=== PATIENT | male | born 1965 | race Caucasian/White ===

== ENCOUNTER 2016-10-20 05:42 | Outpatient (CLI) | payer BC ==
[~2016-10-20] VITALS: Ht 188 cm; Wt 102.1 kg
[~2016-10-20 05:42] MED LIST: DICL18CA; LEVO25TA5; LISI1TAB6; TAMS0.4C2; TEST60GE2; TRAM1TAB7; ZOLP5TAB7; [UNRECOGNIZED DRUG - CODE]
== END 2016-10-20 11:12 ==
LOC: PREOP 05:42
PROVIDERS: ATTEND Surgery Pediatric Surgery
DX: Z01.818 Encounter for other preprocedural examination (principal); Z12.11 Encounter for screening for malignant neoplasm of colon

== ENCOUNTER 2016-10-22 11:16 | Day surgery (SDC) | payer BC ==
[~2016-10-22] VITALS: Ht 188 cm; Wt 102.1 kg
[~2016-10-22 11:16] MED LIST changes: +NS IV 500 ML 500 ML ONE
[2016-10-22 11:25] VITALS: BP 138/82
[2016-10-22] MEDS ORDERED: FLUMAZENIL (ROMAZICON) 0.1 MG/ML 5 ML VIAL INJ PRN (11:30)
[2016-10-22] MEDS ORDERED: LIDOCAINE JELLY 2% (XYLOCAINE) 5 ML TUBE MM PRN (11:30)
[2016-10-22] MEDS ORDERED: NS IV 500 ML 500 ML IV PRN (11:30)
[2016-10-22] MEDS ORDERED: NALOXONE 0.4 MG/ML 1 ML (NARCAN) VIAL IVP PRN (11:30)
[2016-10-22] MEDS ORDERED: FEXO180T84 PO (11:44)
[2016-10-22] MEDS: fentaNYL INJECTION 100 MCG/2 ML AMP IVP PRN ×4 (11:53→12:20)
[2016-10-22] MEDS ORDERED: TRAM1TAB7 PO (11:54)
[2016-10-22] MEDS ORDERED: LISI1TAB6 PO (11:54)
[2016-10-22] MEDS ORDERED: ETAN50PE SQ (11:54)
[2016-10-22] MEDS ORDERED: ZOLP5TAB7 PO (11:54)
[2016-10-22] MEDS ORDERED: TAMS0.4C2 PO (11:54)
[2016-10-22] MEDS ORDERED: BUDE10.22 IH (11:54)
[2016-10-22] MEDS ORDERED: LEVO25TA5 PO (11:54)
[2016-10-22] MEDS ORDERED: TEST2.5G6 TD (11:54)
[2016-10-22] MEDS ORDERED: DICL35CA PO (11:54)
[2016-10-22] MEDS ORDERED: PSEU30TA35 PO (11:54)
[2016-10-22] MEDS: MIDAZOLAM 2 MG/2 ML (VERSED) VIAL IVP PRN ×5 (11:55→12:28)
--- NOTE | 2016-10-22 11:57 | Conscious Sedation/ASA ---
Conscious Sedation Pre-Proced Time Reviewed: 11:50 ASA Class: 2 Airway Mallampati Classification: (jackson appropriate class) I. II. III, IV Lungs Heart ASA score ASA 1: a normal healthy patient ASA 2: a patient with a mild systemic disease (mid diabetes, controlled hypertension, obesity ASA 3: a patient with a severe systemic disease that limits activity (angina , COPD, prior Myocardial infarction) ASA 4: a patient with an incapacitating disease that is a constant threat to life (CHF, renal failure) ASA 5: a moribund patient not expected to survive 24 hrs. (ruptured aneurysm) ASA 6: a declared brain patient whose organs are being harvested. For emergent operations, add the letter E after the classification Grade 2 Sedation Plan: Analgesia, Amnesia, Plan communicated to team members, Discussed options with patient/fam, Discussed risks with patient/fam Note The patient is an appropriate candidate to undergo the planned procedure, sedation, and anesthesia. The patient immediately re-assessed prior to indication. SHAY HORNER MD Oct 22, 2016 11:57 am
--- NOTE | 2016-10-22 11:58 | Progress Note-Pre Operative ---
Pre-Operative Progress Note H&P Reviewed The H&P was reviewed, patient examined and no changes noted. Date H&P Reviewed: Oct 22, 2016 Time H&P Reviewed: 11:50 Pre-Operative Diagnosis: screening colonoscopy SHAY HORNER MD Oct 22, 2016 11:58 am
[2016-10-22] MEDS ORDERED: ONDANSETRON 4 MG/2 ML (SDV) Z0FRAN IV PRN (12:00)
[2016-10-22] MEDS ORDERED: morphine INJ 10 MG/ML 1ML (SYR OR VIAL) IV PRN (12:00)
[2016-10-22] MEDS ORDERED: HYDROcodone/APAP 5 MG/325 MG (LORTAB) TAB PO PRN (12:00)
[2016-10-22] MEDS ORDERED: ACETAMINOPHEN 325 MG TABLET/CAPLET (TYLENOL) PO PRN (12:00)
--- NOTE | 2016-10-22 12:36 | Progress Note-Post Operative ---
Post-Operative Progess Note Pre-Operative Diagnosis screening colonoscopy Post-Operative Diagnosis chronic stage 2 ext and int hemorrhoids, moderate sigmoid diverticulosis. Post-Op Procedure Note Date of Procedure: Oct 22, 2016 Name of Procedure: Colonoscopy Anesthesia Type CS Estimated blood loss (mL): SHAY Richardson MD Oct 22, 2016 12:36 pm
--- NOTE | 2016-10-22 12:38 | Discharge Inst-Surgical ---
D/C Lap Instructions-EVENS Follow Up 10 years Activity as tolerated High Fiber Diet 25g or more per day Avoid Alcohol, Caffeine, Spicy [place] and Acid foods. Drink 64 fluid oz or more of fluids per day. Symptoms to Report: Fever over 101 degree F, Nausea/Vomiting If any problems/questions: Contact your physician or go to Emergency Room SHAY HORNER MD Oct 22, 2016 12:38 pm
[2016-10-22 12:55] VITALS: BP 121/81
[2016-10-22 13:15] VITALS: BP 113/79
[2016-10-22 13:22] VITALS: BP 113/79
--- NOTE | 2016-10-25 07:10 | PROCEDURE REPORT ---
PROCEDURE PHYSICIAN: SHAY MONZON DATE OF PROCEDURE: 10/22/2016 ATTENDING PRIMARY CARE PHYSICIAN: Dr. Sosa. PREOPERATIVE DIAGNOSIS: Screening colonoscopy. POSTOPERATIVE DIAGNOSES: 1. Chronic, stage II external and internal hemorrhoids. 2. Moderate sigmoid diverticulosis. PROCEDURE: Colonoscopy. SURGEON: Dr. Monzon. ANESTHESIA: Conscious sedation. ESTIMATED BLOOD LOSS: Minimal. FINDINGS: 1. Chronic, stage II external and internal hemorrhoids, not actively edematous nor inflamed and no bleeding. 2. Prostate gland was palpable and appeared normal. 3. There was a moderate sigmoid diverticulosis with no signs of inflammation. 4. The remainder of the colon was normal. There were no polyps identified. DISPOSITION: The patient tolerated the procedure well. BRIEF HISTORY: Mr. Philippe Carbajal is a 51-year-old male in need of a screening colonoscopy. This gentleman has not had a colonoscopy up to this point in his life. He states that for the most part, he is doing well. He does not report any major issues with diarrhea nor constipation, as well as no red blood per rectum nor any dark tarry stools. He also does not report any family history of colon cancer. The patient was brought to the endoscopy suite, laid in the left lateral decubitus position. After adequate IV pain and sedative medications and conscious sedation anesthesia, a digital rectal examination was performed. Chronic, stage II external and internal hemorrhoids were identified which were not actively edematous nor inflamed and no bleeding. Normal sphincter tone was felt and there were no palpable masses. The prostate gland was palpable and appeared normal. The endoscope was then intubated into the anus and rectum gently insufflated. The endoscope was then advanced through the valves of Chaves of the rectum with no polyps or any neoplasms identified. We then proceeded through the sigmoid colon where a moderate sigmoid diverticulosis was identified. There were no mucosal inflammatory changes to indicate any active diverticulitis. The endoscope was then advanced through the remainder of the descending, transverse, and ascending colon to the cecum. These segments appeared normal. There were no polyps or any neoplasms identified throughout the colon or rectum. The endoscope was then slowly withdrawn while taking a second look and suctioning of residual air with no additional findings. The patient tolerated the procedure well. We will recommend medical management with a high fiber diet with least 30 grams of fiber per day, as well as at least 64 fluid ounces of water daily to promote soft stools on a daily basis. He does not need another colonoscopy for another 10 years; however, sooner if any problems arise. Job ID: [id number] Dictated Date: 10/22/2016 12:37:33 Lock Tender Chief Operator Date: 10/25/2016 07:05:30 / suze
== END 2016-10-22 13:29 | disposition home or self-care (01) ==
LOC: SDC 11:16
PROVIDERS: ATTEND Surgery Pediatric Surgery
DX: Z12.11 Encounter for screening for malignant neoplasm of colon (principal); K57.30 Diverticulosis of large intestine without perforation or abscess without bleeding; K64.1 Second degree hemorrhoids

== ENCOUNTER 2021-09-27 14:04 | Emergency (ER) | payer BC ==
[~2021-09-27] VITALS: Ht 190.5 cm; Wt 102.0 kg
[~2021-09-27 14:04] MED LIST changes: +BUDE10.22 IH; +DICL35CA PO; +ETAN50PE SQ; +FEXO180T84 PO; +LEVO25TA5 PO; +LISI1TAB44; +LISI1TAB44 PO; -LISI1TAB6; -NS IV 500 ML 500 ML ONE; +PS30T PO; +TAMS0.4C2 PO; +TEST2.5G10 TD; +TRAM1TAB7 PO; +ZOLP5TAB7 PO
--- NOTE | 2021-09-27 14:48 | ED Integumentary General ---
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 HAS 2 AREA OF CONCERN ON BUTTOCKS AND AREA ON R 3RD FINGER CALLED DR DELGADO SIERRA AND STARTED HIM ON CLINDYMYCIN REPORTS NOT HELPING CONCERN BECAUSE HE HAS HAD MRSA IN PAST. FINGER SWOLLEN. Source: patient Exam Limitations: no limitations (YANNA ALBERT STUDENT) History of Present Illness Date Seen by Provider: Sep 27, 2021 Time Seen by Provider: 14:35 Initial Comments This is a 56 YO male presenting to the ED with right middle finger and right buttock pain, redness, and swelling for the past week. Pt states he has had MRSA in the past and this is similar to those episodes. Pt sees Dr. Hernandez for his psoriatic arthritis and is treated with Enbrel, which he says can precipitate his MRSA flare-ups. He called Dr. Hernandez's office on September 24 regarding his symptoms and Clindamycin 300 mg TID was called into his pharmacy. Pt states that despite taking the Clindamycin, his symptoms have continued to worsen. Has an appointment with his PCP Dr. Sosa scheduled for this Tuesday. Timing/Duration: week Associated Symptoms: No fever (YANNA ALBERT STUDENT) Allergies and Home Medications Allergies Coded Allergies: sulfamethoxazole (Verified Allergy, Intermediate, RASH, 11/15/15) Rash consisting of ecchymosis or petechiae trimethoprim (Verified Allergy, Intermediate, RASH, 11/15/15) Rash consisting of ecchymosis or petechiae codeine (Verified Adverse Reaction, Mild, 11/15/15) Palpitations Patient Home Medication List Home Medication List Reviewed: Yes (PETEY CUNNINGHAM MD) Budesonide/Formoterol Fumarate (Symbicort 80-4.5 Mcg Inhaler) 10.2 Gm Hfa.aer.ad, 2 PUFF IH BID PRN for PRN, (Reported) Entered as Reported by: ORIN BELTRE on 10/22/16 1154 Clindamycin HCl (Clindamycin HCl) 150 Mg Capsule, 150 MG PO TID Prescribed by: PETEY CUNNINGHAM on 09/27/21 1644 Diclofenac Submicronized (Zorvolex) 35 Mg Capsule, 35 MG PO BID, (Reported) Entered as Reported by: ORIN BELTRE on 10/22/16 115 Doxycycline Hyclate (Doxycycline Hyclate) 100 Mg Tablet, 100 MG PO BID Prescribed by: PETEY CUNNINGHAM on 09/27/21 164 Etanercept (Enbrel) 50 Mg/1 Ml Pen.injctr, 50 MG SQ PRN, (Reported) Entered as Reported by: ORIN BELTRE on 10/22/16 115 Fexofenadine HCl (Rachel Allergy) 180 Mg Tablet, 180 MG PO DAILY, (Reported) Entered as Reported by: ORIN BELTRE on 10/22/16 114 Hydrocodone/Acetaminophen (Hydrocodone-Acetamin 7.5-325) 1 Each Tablet, 1 EACH PO Q6H Prescribed by: PETEY CUNNINGHAM on 09/27/21 164 Levothyroxine Sodium (Levothyroxine Sodium) 25 Mcg Tablet, 25 MCG PO DAILY, (Reported) Entered as Reported by: ORIN BELTRE on 10/22/16 115 Lisinopril/Hydrochlorothiazide (Lisinopril-Hctz 10-12.5 mg Tab) Unknown Strength Tablet, 1 EACH PO DAILY, (Reported) Entered as Reported by: ORIN BELTRE on 10/22/16 115 Pseudoephedrine HCl (Sudogest) 30 Mg Tablet, 30 MG PO PRN, (Reported) Entered as Reported by: ORIN BELTRE on 10/22/16 115 Tamsulosin HCl (Tamsulosin HCl) 0.4 Mg Cap.er.24h, 0.4 MG PO DAILY, (Reported) Entered as Reported by: ORIN BELTRE on 10/22/16 115 Testosterone (Testosterone) 2.5 Gm Gel.packet, 0.15 GM TD DAILY, (Reported) Entered as Reported by: ORIN BELTRE on 10/22/16 115 Tramadol HCl/Acetaminophen (Tramadol-Acetaminophn 37.5-325) 1 Each Tablet, 1 EACH PO PRN, (Reported) Entered as Reported by: ORIN BELTRE on 10/22/16 115 Zolpidem Tartrate (Zolpidem Tartrate) 5 Mg Tablet, 5 MG PO PRN, (Reported) Entered as Reported by: ORIN BELTRE on 10/22/16 115 Review of Systems Review of Systems Constitutional: No chills, No fever EENTM: No blurred vision, No double vision Respiratory: No cough, No dyspnea on exertion Cardiovascular: No chest pain, No edema Gastrointestinal: No abdominal pain, No constipation Genitourinary: no symptoms reported Musculoskeletal: back pain (chronic); No muscle pain Skin: see HPI Psychiatric/Neurological: Denies Headache, Denies Numbness Endocrine: No Symptoms Reported Hematologic/Lymphatic: No Symptoms Reported (YANNA ALBERT STUDENT) All Other Systems Reviewed Negative Unless Noted: Yes (Negative excepted noted.) (YANNA ALBERT STUDENT) Past Ilqptja-Edljew-Kktmfc Hx Immunizations Up To Date First/Initial COVID19 Vaccinat: December COVID19 Vaccination Jack: DECEMBER COVID19 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: [employer] (YANNA ALBERT) Seasonal Allergies Seasonal Allergies: Yes (YANNA ALBERT) Past Medical History Testicular Asthma Hypertension Reproductive Disorders: No Sexually Transmitted Disease: No Rheumatoid Arthritis Hypothyroidsim Sleep Difficulties Adverse Reaction/Blood Tranf: No (YANNA ALBERT) Physical Exam Vital Signs Vital Signs - First Documented 09/27/21 14:28 Temp 36.6 Pulse 94 Resp 18 B/P (MAP) 145/95 (112) Pulse Ox 95 O2 Delivery Room Air (PETEY CUNNINGHAM MD) Vital Signs Capillary Refill : Less Than 3 Seconds (YANNA ALBERT STUDENT) General Appearance: WD/WN, no apparent distress HEENT: PERRL/EOMI; No scleral icterus (R), No scleral icterus (L) Neck: supple, normal inspection Cardiovascular: regular rate, rhythm, no edema, no murmur Respiratory: lungs clear, normal breath sounds, no respiratory distress, no accessory muscle use Gastrointestinal: non tender, soft; No distended, No guarding Back: No decreased range of motion Extremities: normal range of motion, non-tender, other (Blanchable erythema and swelling of the right middle finger starting at the tip and extending to just proximal to the PIP joint. No abscesses, wounds, or ulcerations. No volar tenderness or sausage-shaped finger, but does have pain with extension of the finger. Blanchable area of erythema and induration with purulent drainage on the right buttock near the gluteal cleft.) Neurologic/Psychiatric: no motor/sensory deficits, alert, normal mood/affect, oriented x 3 Skin: normal color, warm/dry (YANNA ALBERT MED STUDENT) Skin Problem Location: other (area of abcess right buttock at the gluteal cleft to the right. rather large with erythema surrounding and 5-6cm of induration. some overlying necrotic skin with a suggestion of purulent drainage throught the skin. Very tender to palpation. scant skin changes "kissing lesion" on opposite buttock. erythema does not extend to the rectum.) Skin Problem Character: abscess (PETEY CUNNINGHAM MD) Progress/Results/Core Measures Results/Orders Lab Results Laboratory Tests Test 09/27/21 15:30 Range/Units White Blood Count 11.3 H 4.3-11.0 10^3/uL Red Blood Count 4.43 4.30-5.52 10^6/uL Hemoglobin 14.3 13.3-17.7 g/dL Hematocrit 40 40-54 % Mean Corpuscular Volume 91 80-99 fL Mean Corpuscular Hemoglobin 32 25-34 pg Mean Corpuscular Hemoglobin Concent 36 32-36 g/dL Red Cell Distribution Width 11.5 10.0-14.5 % Platelet Count 307 130-400 10^3/uL Mean Platelet Volume 9.3 9.0-12.2 fL Immature Granulocyte % (Auto) 2 % Neutrophils (%) (Auto) 80 H 42-75 % Lymphocytes (%) (Auto) 10 L 12-44 % Monocytes (%) (Auto) 7 0-12 % Eosinophils (%) (Auto) 1 0-10 % Basophils (%) (Auto) 0 0-10 % Neutrophils # (Auto) 9.0 H 1.8-7.8 10^3/uL Lymphocytes # (Auto) 1.1 1.0-4.0 10^3/uL Monocytes # (Auto) 0.8 0.0-1.0 10^3/uL Eosinophils # (Auto) 0.2 0.0-0.3 10^3/uL Basophils # (Auto) 0.0 0.0-0.1 10^3/uL Immature Granulocyte # (Auto) 0.2 H 0.0-0.1 10^3/uL Sodium Level 136 135-145 MMOL/L Potassium Level 4.0 3.6-5.0 MMOL/L Chloride Level 102 98-107 MMOL/L Carbon Dioxide Level 23 21-32 MMOL/L Anion Gap 11 5-14 MMOL/L Blood Urea Nitrogen 11 7-18 MG/DL Creatinine 0.77 0.60-1.30 MG/DL Estimat Glomerular Filtration Rate 105 BUN/Creatinine Ratio 14 Glucose Level 93 70-105 MG/DL Calcium Level 9.3 8.5-10.1 MG/DL (PETEY CUNNINGHAM MD) Micro Results Microbiology 09/27/21 Gram Stain - Final, Resulted 09/27/21 Wound Culture - Preliminary, Resulted Staphylococcus aureus (PETEY CUNNINGHAM MD) My Orders Orders - PETEY CUNNINGHAM MD Ed Iv/Invasive Line Start (09/27/21 15:07) Cbc With Automated Diff (09/27/21 15:07) Basic Metabolic Panel (09/27/21 15:07) Wound Culture (09/27/21 15:07) Hydrocodone/Apap 10/325 Tablet (Lortab 1 (09/27/21 15:15) Lidocaine 1% Inj 20 Ml (Xylocaine 1% Inj (09/27/21 15:15) (PETEY CUNNINGHAM MD) Medications Given in ED (PETEY CUNNINGHAM MD) Vital Signs/I&O 09/27/21 09/27/21 14:28 17:06 Temp 36.6 36.6 Pulse 94 94 Resp 18 18 B/P (MAP) 145/95 (112) 145/95 Pulse Ox 95 95 O2 Delivery Room Air Room Air (PETEY CUNNIGNHAM MD) Blood Pressure Mean: 112 Progress Progress Note : Time: 16:45 Progress Note 56-year-old male with a history of psoriatic arthritis on Enbrel presents with a chief complaint of right third finger pain and swelling and redness as well as an abscess to his right buttock. Patient states he noticed symptoms over the course of the last week. 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 Patient states he has been taking his antibiotics 3 times a day, 300 mg and feels like his symptoms are worsening. He denies fevers, chills, nausea vomiting or diarrhea. He has no shortness of breath or Covid complaints. He has been taking [id number] medications for pain. Physical exam is remarkable for some swelling to the right middle finger that starts at about the proximal interphalangeal joint and extends to the tip. No discrete abscess is noted, no drainage from anywhere on the skin. He does not have any physical exam findings concerning for flexor tenosynovitis. He has a rather large abscess that is 6 cm x 10 cm on the medial right buttock adjacent to the gluteal cleft. There is no extension to the rectum. There is significant surrounding erythema. It is quite tender to palpation. It looks like it has been draining a scant amount. Rest of his exam is unremarkable. I did locally anesthetize the abscess on his buttock with 1% lidocaine approximately 4 cc. Incised with an 11 blade. There was no discrete fluid collection. The abscessed area was incised to a depth of about a centimeter and a half. Pressure on the surrounding tissues did result in extrusion of a mild amount of pus. May be 4 to 5 cc in total. Wound was copiously irrigated with normal saline and then packed with quarter inch plain gauze. 4 x 4 dressing was placed over the top. Patient was instructed to leave the packing in place until he follows up with a scheduled Dr. Sosa appointment on Tuesday. He is given strict return precautions to include if he develops any fever, abdominal pain, nausea or vomiting to come back to the emergency room. I plan on increasing his clindamycin to 450 mg 3 times a day and we will add doxycycline 100 mg twice daily. Patient is given a prescription for hydrocodone 7.5 mg to take as needed for pain. Routine narcotic precautions. He verbalized understanding and is comfortable with the plan of care. All questions are sought and answered. (PETEY CUNNINGHAM MD) Departure Impression Primary Impression: Finger infection Additional Impression: Cellulitis and abscess of buttock Disposition: HOME, SELF-CARE Condition: Stable Departure-Patient Inst. Decision time for Depature: 16:36 (PETEY CUNNINGHAM MD) Referrals: DEREJE SOSA DO (PCP/Family) Primary Care Physician Patient Instructions: Abscess Incision and Drainage, Methicillin-Resistant Staphylococcus aureus (MRSA) Add. Discharge Instructions: We are increasing your Clindamycin dosing to 450mg 3 times a day. You will take an additional 150mg pill with your 300mg tablet for the rest of the duration of your antibiotic course. We are adding Doxycycline 100mg twice a day for 10 days. Hydrocodone pain pills every 6 hours as needed for pain. Be careful with this medication as it can cause constipation and make you sleepy. Do not drive and take Hydrocodone. Take stool softeners daily, twice a day to help prevent constipation. You will need to be on a Priobiotic - ask your pharmacist - the refridgerated ones are usually behind the pharmacy counter. Keep your follow up with Dr Sosa on Tuesday. If you develop fever over 100.4, abdominal pain, vomiting, worsening pain in your finger or buttock, please come back to the ER for re-evaluation. Scripts Hydrocodone/Acetaminophen (Hydrocodone-Acetamin 7.5-325) 1 Each Tablet 1 EACH PO Q6H, #15 TAB Prov: PETEY CUNNINGHAM MD 09/27/21 Clindamycin HCl (Clindamycin HCl) 150 Mg Capsule 150 MG PO TID for 7 Days, #21 CAP Prov: PETEY CUNNINGHAM MD 09/27/21 Doxycycline Hyclate (Doxycycline Hyclate) 100 Mg Tablet 100 MG PO BID, #20 TAB 0 Refills Prov: PETEY CUNNINGHAM MD 09/27/21 Verification and Attestation of Medical Student E/M Service A medical student performed and documented this service in my presence. I reviewed and verified all information documented by the medical student and made modifications to such information, when appropriate. I personally performed the physical exam and medical decision making. Petey Cunningham, Sep 27, 2021,16:48 (PETEY CUNNINGHAM MD) Copy Copies To 1: DEREJE SOSA CHRISTINE MED STUDENT Sep 27, 2021 14:48 PETEY CUNNINGHAM MD Sep 27, 2021 16:41
[2021-09-27] MEDS ORDERED: LIDOCAINE 1% INJ 20 ML 20 ML VIAL INJ ONE (15:15)
[2021-09-27 15:44] LABS: BASOPHILS % (AUTO) 0 % (0-10); EOSINOPHILS # (AUTO) 0.2 10^3/uL (0.0-0.3); EOSINOPHILS % (AUTO) 1 % (0-10); HEMATOCRIT 40 % (40-54); HEMOGLOBIN 14.3 g/dL (13.3-17.7); LYMPHOCYTES # (AUTO) 1.1 10^3/uL (1.0-4.0); LYMPHOCYTES % (AUTO) 10 % (12-44); MEAN CORPUSCULAR HEMOGLOBIN 32 pg (25-34); MEAN CORPUSCULAR HGB CONC 36 g/dL (32-36); MEAN CORPUSCULAR VOLUME 91 fL (80-99); MEAN PLATELET VOLUME 9.3 fL (9.0-12.2); MONOCYTES # (AUTO) 0.8 10^3/uL (0.0-1.0); MONOCYTES % (AUTO) 7 % (0-12); NEUTROPHILS % (AUTO) 80 % (42-75); PLATELET COUNT 307 10^3/uL (130-400); WHITE BLOOD COUNT 11.3 10^3/uL (4.3-11.0)
[2021-09-27 15:54] LABS: CALCIUM 9.3 MG/DL (8.5-10.1)
[2021-09-27 15:59] LABS: CREATININE SERUM 0.77 MG/DL (0.60-1.30)
[2021-09-27] MEDS ORDERED: CLIN150C20 PO (16:44)
[2021-09-27] MEDS ORDERED: HYDR-3817 PO (16:44)
[2021-09-27] MEDS ORDERED: DOXY100T2 PO (16:44)
[2021-09-27 17:06] VITALS: BP 145/95
== END 2021-09-27 17:05 | disposition home or self-care (01) ==
LOC: EDUNIT# 14:04 → ER 14:06
DX: L08.9 Local infection of the skin and subcutaneous tissue, unspecified (principal); L03.317 Cellulitis of buttock; L02.31 Cutaneous abscess of buttock; J45.909 Unspecified asthma, uncomplicated; I10 Essential (primary) hypertension; E03.9 Hypothyroidism, unspecified; Z79.890 Hormone replacement therapy; Z79.899 Other long term (current) drug therapy
CPT/HCPCS: 10060; 36415; 80048; 85025; 87070; 87077; 87186; 87205